=== PATIENT | female | born 1990 | race African-American/Black ===

== ENCOUNTER 2021-11-18 20:14 | Emergency (ER) | payer MEDICARE ==
[~2021-11-18] VITALS: Ht 162.6 cm; Wt 88.5 kg
[2021-11-18] MEDS ORDERED: KETOROLAC TROMETHAMINE 30 MG/ML VIAL IV STA (21:25)
[2021-11-18 21:41] LABS: BASOPHILS % 0.3 % (0.0-1.0); EOSINOPHILS % 0.4 % (0.0-6.0); HEMATOCRIT 43.2 % (34.2-44.1); HEMOGLOBIN 13.9 g/dL (12.0-16.0); LYMPHOCYTES # (AUTO) 3.8 (1.0-3.2); LYMPHOCYTES % 38.4 % (18.0-39.1); MEAN CORPUSCULAR HEMOGLOBIN 27.3 pg (28-32); MEAN CORPUSCULAR HGB CONC 32.2 g/dL (31-35); MEAN CORPUSCULAR VOLUME 84.7 fL (81-99); MONOCYTES # (AUTO) 0.6 (0.2-0.8); MONOCYTES % 6.4 % (4.4-11.3); NEUTROPHILS # (AUTO) 5.4 (2.1-6.9); NEUTROPHILS % 54.3 % (38.7-80.0); PLATELET COUNT 448 x10e3/uL (140-360); RED CELL DISTRIBUTION WIDTH 14.4 % (11.7-14.4)
[2021-11-18] MEDS ORDERED: KETOROLAC TROMETHAMINE 30 MG/ML VIAL ONE (21:45)
[2021-11-18 21:54] LABS: CALCIUM 9.5 mg/dL (8.4-10.2); CREATININE, SERUM 0.81 mg/dL (0.57-1.11)
[2021-11-19] MEDS ORDERED: IOPAMIDOL 370 MG/ML 100 ML INFUS..BTL INJ ONE (00:12)
[2021-11-19 02:05] VITALS: BP 136/78
== END 2021-11-19 01:55 | disposition home or self-care (01) ==
LOC: ER 20:35
DX: M25.552 Pain in left hip (principal); M71.552 Other bursitis, not elsewhere classified, left hip
CPT/HCPCS: 36415; 73701; 80048; 84702; 85025; 99284; J1885; Q9967